=== PATIENT | male | born 1950 | race Caucasian/White ===

== ENCOUNTER 2016-12-01 19:08 | Emergency (ER) | payer MEDICARE, OTHER ==
[2016-12-01 19:22] VITALS: BP 112/73
--- NOTE | 2016-12-01 19:28 | ER Document Report ---
ED Medical Screen (RME) - General Stated Complaint: RIGHT LEG LACERATION Notes: 66 yo male c/o laceration to right lower leg. cut on playground equiptment about an hour [employer]. 4 cm lac to right pretibial area. bleeding controlled. tetnus is UTD TRAVEL OUTSIDE OF THE [place] IN LAST 30 DAYS: No - Related Data Allergies/Adverse Reactions: quinine Allergy (Severe, Verified 03/29/16 15:20) as child Past Medical History - Past Medical History Cardiac Medical History: Denies: Hx Coronary Artery Disease, Hx Heart Attack, Hx Hypertension Pulmonary Medical History: Denies: Hx Asthma, Hx Bronchitis, Hx COPD, Hx Pneumonia Neurological Medical History: Denies: Hx Cerebrovascular Accident, Hx Seizures Renal/ Medical History: Reports: Hx Benign Prostatic Hyperplasia Malignancy Medical History: Reports Hx Skin Cancer Musculoskeltal Medical History: Reports Hx Arthritis - joints Past Surgical History: Reports: Hx Oral Surgery - Immunizations Hx Diphtheria, Pertussis, Tetanus Vaccination: Yes Physical Exam - Vital signs Vitals: Pulse Resp BP Pulse Ox 80 16 112/73 98 12/01/16 19:20 12/01/16 19:20 12/01/16 19:20 12/01/16 19:20 Course - Vital Signs Vital signs: Temp Pulse Resp BP Pulse Ox 97.9 F 80 16 112/73 98 12/01/16 19:21 12/01/16 19:20 12/01/16 19:20 12/01/16 19:20 12/01/16 19:20
[2016-12-01] MEDS ORDERED: LIDOCAINE 1% INJ-PF (10 MG/ML) 30 ML SDV INJ ONE (22:28)
[2016-12-01] MEDS ORDERED: LIDOCAINE 1% INJ-PF (10 MG/ML) 30 ML SDV ONE (22:29)
[2016-12-01] MEDS ORDERED: OXYCODONE-ACETAMINOPHEN 5-325 MG TABLET PO ONE (22:31)
[2016-12-01] MEDS ORDERED: CEPHALEXIN 500 MG CAPSULE PO ONE (22:31)
--- NOTE | 2016-12-01 22:54 | ER Document Report ---
ED Wound - General Chief Complaint: Laceration Stated Complaint: RIGHT LEG LACERATION Notes: Patient is a 66-year-old male presents emergency Department with lactated the right anterior de la fuente. Patient states that he was chasing around his grandson when he ran into a piece of playground equipment. Patient states that he is up- to-date on his tetanus most recently 1 year ago. Has full sensation below the injury no pain around that. Able to bear weight and ambulate without any difficulty TRAVEL OUTSIDE OF THE [place] IN LAST 30 DAYS: No - Related Data Allergies/Adverse Reactions: quinine Allergy (Severe, Verified 03/29/16 15:20) as child Past Medical History - Social History Smoking Status: Never Smoker Chew tobacco use (# tins/day): No Frequency of alcohol use: None Drug Abuse: None Family History: Reviewed & Not Pertinent Patient has suicidal ideation: No Patient has homicidal ideation: No - Past Medical History Cardiac Medical History: Denies: Hx Coronary Artery Disease, Hx Heart Attack, Hx Hypertension Pulmonary Medical History: Denies: Hx Asthma, Hx Bronchitis, Hx COPD, Hx Pneumonia Neurological Medical History: Denies: Hx Cerebrovascular Accident, Hx Seizures Renal/ Medical History: Reports: Hx Benign Prostatic Hyperplasia. Denies: Hx Peritoneal Dialysis Malignancy Medical History: Reports Hx Skin Cancer Musculoskeltal Medical History: Reports Hx Arthritis - joints Past Surgical History: Reports: Hx Oral Surgery - Immunizations Hx Diphtheria, Pertussis, Tetanus Vaccination: Yes Review of Systems - Review of Systems Constitutional: No symptoms reported EENT: No symptoms reported Cardiovascular: No symptoms reported Respiratory: No symptoms reported Gastrointestinal: No symptoms reported Genitourinary: No symptoms reported Male Genitourinary: No symptoms reported Musculoskeletal: See HPI Skin: See HPI Hematologic/Lymphatic: No symptoms reported Neurological/Psychological: No symptoms reported Physical Exam - Vital signs Vitals: Pulse Resp BP Pulse Ox 80 16 112/73 98 12/01/16 19:20 12/01/16 19:20 12/01/16 19:20 12/01/16 19:20 - Notes Notes: PHYSICAL EXAM GENERAL: Alert, interacts well. HEAD: Normocephalic, atraumatic. EYES: Pupils equal, round, and reactive to light. Extraocular movements intact. ENT: Oral mucosa moist, tongue midline. NECK: Full range of motion. Supple. Trachea midline. LUNGS: Clear to auscultation bilaterally, no wheezes, rales, or rhonchi. No respiratory distress. HEART: Regular rate and rhythm. No murmurs, gallops, or rubs. ABDOMEN: Soft, nondistended, nontender. No guarding, rebound, or rigidity.. Bowel sounds present in all 4 quadrants. EXTREMITIES: Moves all 4 extremities spontaneously. No edema, radial and dorsalis pedis pulses 2/4 bilaterally. No cyanosis. NEUROLOGICAL: Alert and oriented x3. Normal speech. PSYCH: Normal affect, normal mood. SKIN: Warm, dry, normal turgor. No rashes or lesions noted. 4 cm linear lack vertical along the anterior de la fuente down to subcutaneous fat not involving bone. Course - Re-evaluation Re-evalutation: 12/01/16 23:05 Lack was irrigated with Betadine and saline and closed with 4-0 Prolene. Patient tolerated the procedure well. Minimal bleeding clean dressing applied can follow-up with primary care doctor in 2-3 weeks for removal. - Vital Signs Vital signs: Temp Pulse Resp BP Pulse Ox 97.9 F 80 16 112/73 98 12/01/16 19:21 12/01/16 19:20 12/01/16 19:20 12/01/16 19:20 12/01/16 19:20 Discharge - Discharge Clinical Impression: Laceration Condition: Good Disposition: HOME, SELF-CARE Instructions: Antibiotic Ointment Protection ([facility]), Oral Narcotic Medication ( [facility]), Soap Cleansing ([facility]), Prophylactic Antibiotic ([facility]), Laceration Care ([facility]) Additional Instructions: Please see your primary care doctor or return to emergency department for suture removal in 14-21 days Prescriptions: Oxycodone HCl/Acetaminophen [Percocet 5-325 mg Tablet] 1 - 2 tab PO Q4HP PRN # 15 tablet PRN Reason: Cephalexin Monohydrate [Keflex 500 mg Capsule] 500 mg PO BID 7 Days Forms: Special Work Note
== END 2016-12-01 23:38 | disposition home or self-care (01) ==
LOC: ER 19:08
PROC: 0HQKXZZ Repair Right Lower Leg Skin, External Approach (ICD-10-PCS; principal; 2016-12-01)
DX: S81.811A Laceration without foreign body, right lower leg, initial encounter (principal); W45.8XXA Other foreign body or object entering through skin, initial encounter
CPT/HCPCS: 99282

== ENCOUNTER 2017-02-08 08:35 | Emergency (ER) | payer MEDICARE, OTHER ==
--- NOTE | 2017-02-08 09:23 | ER Document Report ---
ED General - General Chief Complaint: Shoulder Pain Stated Complaint: LEFT SHOULDER INJURY Time Seen by Provider: 02/08/17 08:51 Mode of Arrival: Ambulatory Information source: Patient Notes: 66-year-old male presents with complaints of left shoulder pain. Patient notes he has a history of right rotator cuff injury charted to grab with his left arm and did not feel an immediate pain but since then has had worsening sensation is unable to lift his arm forward or to the side TRAVEL OUTSIDE OF THE [place] IN LAST 30 DAYS: No - HPI Onset: Other - 2 day duration Onset/Duration: Persistent Quality of pain: Achy Severity: Mild Pain Level: 1 Associated symptoms: Body/muscle aches Exacerbated by: Movement Relieved by: Denies Similar symptoms previously: Yes Recently seen / treated by doctor: Yes - patient goes to [facility] - Related Data Allergies/Adverse Reactions: quinine Allergy (Severe, Verified 03/29/16 15:20) as child Past Medical History - Social History Smoking Status: Never Smoker Cigarette use (# per day): Yes Chew tobacco use (# tins/day): No Smoking Education Provided: No Frequency of alcohol use: None Drug Abuse: None Family History: Reviewed & Not Pertinent Patient has suicidal ideation: No Patient has homicidal ideation: No - Past Medical History Cardiac Medical History: Denies: Hx Coronary Artery Disease, Hx Heart Attack, Hx Hypertension Pulmonary Medical History: Denies: Hx Asthma, Hx Bronchitis, Hx COPD, Hx Pneumonia Neurological Medical History: Denies: Hx Cerebrovascular Accident, Hx Seizures Renal/ Medical History: Reports: Hx Benign Prostatic Hyperplasia. Denies: Hx Peritoneal Dialysis Malignancy Medical History: Reports Hx Skin Cancer Musculoskeltal Medical History: Reports Hx Arthritis - joints Past Surgical History: Reports: Hx Oral Surgery - Immunizations Hx Diphtheria, Pertussis, Tetanus Vaccination: Yes Review of Systems - Review of Systems Notes: PHYSICAL EXAMINATION: GENERAL: Well-appearing, well-nourished and in no acute distress. HEAD: Atraumatic, normocephalic. EYES: Pupils equal round and reactive to light, extraocular movements intact, sclera anicteric, conjunctiva are normal. ENT: Nares patent, oropharynx clear without exudates. Moist mucous membranes. NECK: Normal range of motion, supple without lymphadenopathy LUNGS: Breath sounds clear to auscultation bilaterally and equal. No wheezes rales or rhonchi. HEART: Regular rate and rhythm without murmurs ABDOMEN: Soft, nontender, nondistended abdomen. No guarding, no rebound. No masses appreciated. Musculoskeletal: Limited range of motion of the left shoulder secondary to pain , patient is able to move the shoulder if he uses his right arm. Range of motion is limited to 80 NEUROLOGICAL: Cranial nerves grossly intact. Normal speech, normal gait. Normal sensory, motor exams PSYCH: Normal mood, normal affect. SKIN: Warm, Dry, normal turgor, no rashes or lesions noted. Physical Exam - Vital signs Vitals: Temp Pulse Resp BP Pulse Ox 97.4 F 73 16 123/77 99 02/08/17 08:40 02/08/17 08:40 02/08/17 08:40 02/08/17 08:40 02/08/17 08:40 Course - Re-evaluation Re-evalutation: 02/08/17 09:23 Patient instructed on risks and benefits of medications prescribed. Denies any concerns regarding such. 02/08/17 12:14 X-ray noted no significant abnormality, I believe there is a rotator cuff injury , patient will be started on anti-inflammatory steroids and risks have been explained. Patient has been ordered a sling for comfort and follow-up with orthopedics for possible rotator cuff repair After performing a Medical Screening Examination, I estimate there is LOW risk for INTRACRANIAL HEMORRHAGE, UNSTABLE SPINE FRACTURE, CENTRAL CORD SYNDROME, CAUDA EQUINA, THORACIC AORTIC DISSECTION, PNEUMOTHORAX, PERFORATED BOWEL, RUPTURED ABDOMINAL AORTIC ANEURYSM, ACUTE TENDON RUPTURE, COMPARTMENT SYNDROME, or OPEN FRACTURE, thus I consider the discharge disposition reasonable. Also, there is no evidence or peritonitis, sepsis, or toxicity. I have reevaluated this patient multiple times and no significant life threatening changes are noted. The patient and I have discussed the diagnosis and risks, and we agree with discharging home to follow-up with their primary doctor with the understanding that symptoms and presentations can change. We also discussed returning to the Emergency Department immediately if new or worsening symptoms occur. We have discussed the symptoms which are most concerning (e.g., bloody stool, fever, changing or worsening pain, vomiting) that necessitate immediate return. - Vital Signs Vital signs: Temp Pulse Resp BP Pulse Ox 97.4 F 70 16 120/70 100 02/08/17 09:39 02/08/17 09:39 02/08/17 09:39 02/08/17 09:39 02/08/17 09:39 - Diagnostic Test Radiology reviewed: Image reviewed, Reports reviewed - No acute abnormality Discharge - Discharge Clinical Impression: Rotator cuff (capsule) sprain Qualifiers: Encounter type: initial encounter Laterality: left Qualified Code(s): S43.422A - Sprain of left rotator cuff capsule, initial encounter Shoulder pain Qualifiers: Laterality: left Chronicity: acute Qualified Code(s): M25.512 - Pain in left shoulder Condition: Stable Disposition: HOME, SELF-CARE Instructions: Rotator Cuff Injury ([facility]) Prescriptions: Oxycodone HCl/Acetaminophen [Percocet 5-325 mg Tablet] 1 - 2 tab PO Q4H PRN #15 tablet PRN Reason: Prednisone [Deltasone 20 mg Tablet] 3 tab PO DAILY 5 Days Referrals: JEREMY QUIROZ DO [ACTIVE STAFF] - Follow up tomorrow
[2017-02-08 09:41] VITALS: BP 120/70
== END 2017-02-08 09:41 | disposition home or self-care (01) ==
LOC: ER 08:35
DX: S43.422A Sprain of left rotator cuff capsule, initial encounter (principal); M25.512 Pain in left shoulder; M79.1 Myalgia; X58.XXXA Exposure to other specified factors, initial encounter; Z85.828 Personal history of other malignant neoplasm of skin
CPT/HCPCS: 99283

== ENCOUNTER 2017-04-08 10:54 | Observation (INO) | payer MEDICARE, OTHER ==
[2017-04-01 09:26] LABS: APPEARANCE,URINE CLEAR; BILIRUBIN,URINE NEGATIVE (NEGATIVE); GLUCOSE, URINE NEGATIVE (NEGATIVE); KETONES,URINE NEGATIVE (NEGATIVE); LEUKOCYTE ESTERASE,URINE NEGATIVE (NEGATIVE); NITRITE,URINE NEGATIVE (NEGATIVE); PROTEIN,URINE NEGATIVE (NEGATIVE); URINE SPECIFIC GRAVITY 1.004; UROBILINOGEN,URINE NEGATIVE mg/dL (<2.0)
[2017-04-01 09:27] LABS: ABSOLUTE EOSINOPHILS # (AUTO) 0.2 10^3/uL (0.0-0.6); ABSOLUTE LYMPHOCYTES (AUTO) 1.7 10^3/uL (0.5-4.7); ABSOLUTE MONOCYTES (AUTO) 0.6 10^3/uL (0.1-1.4); BASOPHILS % (AUTO) 0.6 % (0-2); EOSINOPHILS % (AUTO) 3.7 % (0-6); HEMATOCRIT 43.8 % (37.9-51.0); HEMOGLOBIN 14.7 g/dL (13.5-17.0); HGB HCT DIFFERENCE 0.3; LYMPHOCYTES % (AUTO) 29.8 % (13-45); MEAN CORPUSCULAR HEMOGLOBIN 29.8 pg (27.0-33.4); MEAN CORPUSCULAR HGB CONC 33.6 g/dL (32.0-36.0); MEAN CORPUSCULAR VOLUME 89 fl (80-97); RED BLOOD COUNT 4.95 10^6/uL (4.35-5.55); RED CELL DISTRIBUTION WIDTH 13.7 % (11.5-14.0); SEGMENTED NEUTROPHILS % (AUTO) 54.9 % (42-78); WHITE BLOOD COUNT 5.6 10^3/uL (4.0-10.5)
[2017-04-01 10:00] LABS: BLOOD UREA NITROGEN 16 mg/dL (7-20); CALCIUM 9.4 mg/dL (8.4-10.2); CARBON DIOXIDE 29 mmol/L (22-30); CHLORIDE 105 mmol/L (98-107); CREATININE RESULT 1.11 mg/dL (0.52-1.25); GLUCOSE 92 mg/dL (75-110); SODIUM 143.1 mmol/L (137-145)
[2017-04-01 10:01] LABS: ANION GAP 9 (5-19)
--- NOTE | 2017-04-01 10:51 | RADIOLOGY REPORT (SQ) ---
EXAM DESCRIPTION: CHEST PA/LATERAL COMPLETED DATE/TIME: 04/01/2017 10:32 am REASON FOR STUDY: PRE OP COMPARISON: None. EXAM PARAMETERS: NUMBER OF VIEWS: two views TECHNIQUE: Digital Frontal and Lateral radiographic views of the chest acquired. RADIATION DOSE: NA LIMITATIONS: none FINDINGS: LUNGS AND PLEURA: There is calcified granuloma in the right lung calcified right hilar nod es are present. There is no pulmonary infiltrate or pleural effusion. MEDIASTINUM AND HILAR STRUCTURES: No masses or contour abnormalities. HEART AND VASCULAR STRUCTURES: Heart normal size. No evidence for failure. BONES: No acute findings. HARDWARE: None in the chest. OTHER: No other significant finding. IMPRESSION: NO SIGNIFICANT RADIOGRAPHIC FINDING IN THE CHEST. TECHNICAL DOCUMENTATION: JOB ID: [id number] [employer]- All Rights Reserved
--- NOTE | 2017-04-01 20:53 | EKG REPORT ---
SEVERITY:- NORMAL ECG - SINUS RHYTHM : Confirmed by: Virginie Chowdhury 01-Apr-2017 20:52:04
[~2017-04-08 10:54] MED LIST: CEFAZOLIN 2 GM/D5W RTU 2 GM/50 ML RTUPB IV PRN; LACTATED RINGERS 1000 ML IV PRN
[2017-04-08] MEDS ORDERED: BUPIVACAINE HCL 0.5 % INJ/PF 30 ML SDV ONE (11:55)
[2017-04-08] MEDS ORDERED: EPINEPHRINE INJ/PF 1 MG/1 ML AMPULE ONE (11:56)
[2017-04-08] MEDS ORDERED: FENTANYL CITRATE INJ/PF 250 MCG/5 ML AMPULE ONE (12:01)
[2017-04-08] MEDS ORDERED: MIDAZOLAM 2 MG/2 ML INJ ONE (12:02)
[2017-04-08] MEDS ORDERED: IBUPROFEN INJ 800 MG/8 ML VIAL IV ONE (12:02)
[2017-04-08] MEDS ORDERED: PROPOFOL INJ 200 MG/20 ML VIAL IV ONE (12:02)
[2017-04-08] MEDS ORDERED: MORPHINE SULFATE 10 MG/ML INJ ONE (12:03)
[2017-04-08] MEDS ORDERED: EPHEDRINE SULFATE INJ 50 MG/1 ML AMPULE ONE (13:25)
[2017-04-08] MEDS ORDERED: GLYCOPYRROLATE INJ 0.4 MG/2 ML VIAL ONE (13:33)
[2017-04-08] MEDS ORDERED: ONDANSETRON HCL INJ/PF 4 MG/2 ML SDV ONE ×3 (13:33→19:48)
[2017-04-08] MEDS ORDERED: SUCCINYLCHOLINE CHLORIDE INJ 200 MG/10 ML VIAL ONE (13:33)
[2017-04-08] MEDS ORDERED: NEOSTIGMINE METHYLSULFATE 10 MG/10 ML VIAL ONE (13:33)
[2017-04-08] MEDS ORDERED: PHENYLEPHRINE HCL INJ/PF 10 MG/1 ML SDV ONE (13:33)
[2017-04-08] MEDS ORDERED: METOCLOPRAMIDE HCL INJ/PF 10 MG/2 ML SDV ONE (13:33)
[2017-04-08] MEDS ORDERED: LIDOCAINE 2% INJ-PF (20 MG/ML) 10 ML AMPUL ONE (13:33)
[2017-04-08] MEDS ORDERED: ROCURONIUM BROMIDE INJ 50 MG/5 ML VIAL IV ONE (13:33)
[2017-04-08] MEDS ORDERED: DIPHENHYDRAMINE HCL 50 MG/ML VIAL IV PRN (14:31)
[2017-04-08] MEDS ORDERED: PROMETHAZINE HCL INJ 25 MG/1 ML VIAL IV PRN ×2 (14:31)
[2017-04-08] MEDS ORDERED: FENTANYL CITRATE INJ/PF 100 MCG/2 ML AMPUL IV PRN ×3 (14:31)
[2017-04-08] MEDS ORDERED: ONDANSETRON HCL INJ/PF 4 MG/2 ML SDV IV PRN (14:31)
[2017-04-08] MEDS ORDERED: MORPHINE SULFATE 10 MG/ML INJ IV PRN ×2 (14:31→23:02)
[2017-04-08] MEDS ORDERED: OXYCODONE-ACETAMINOPHEN 5-325 MG TABLET PO PRN ×3 (14:31→16:54)
[2017-04-08] MEDS ORDERED: MEPERIDINE HCL/PF INJ 25 MG/1 ML DISP.SYRIN IV PRN (14:31)
--- NOTE | 2017-04-08 16:32 | PDOC DISCHARGE SUMMARY ---
Discharge Summary (SDC) - Discharge Final Diagnosis: Status post left shoulder arthroscopic rotator cuff repair and biceps tenodesis Date of Surgery: 04/08/17 Discharge Date: 04/08/17 Condition: Good Treatment or Instructions: Patient is instructed to follow up in 10-14 days. Patient instructed to remove dressing in 4 days then can shower and apply Band- Aids as needed. Patient to wear sling for comfort but okay to remove for shower and pendulum exercises. Pendulum exercises are instructed to be done 3 times a day ideally with breakfast, lunch, dinners and showers. Patient instructed to call if there is any signs of redness or drainage fevers or chills. Prescriptions: Oxycodone HCl/Acetaminophen [Percocet 5-325 mg Tablet] 1 - 2 tab PO ASDIR PRN # 60 tablet PRN Reason:
[2017-04-08] MEDS ORDERED: NALOXONE HCL INJ/PF 0.4 MG/1 ML SDV ONE (16:50)
--- NOTE | 2017-04-08 16:54 | Operative Report ---
Operative Report DATE OF SURGERY: 04/08/17 PREOPERATIVE DIAGNOSIS: Left shoulder full-thickness large rotator cuff tear POSTOPERATIVE DIAGNOSIS: Same plus partial tearing of the long head of the biceps tendon OPERATION: Left shoulder arthroscopic rotator cuff repair and biceps tenodesis SURGEON: FILIBERTO HINKLE ANESTHESIA: GA TISSUE REMOVED OR ALTERED: None COMPLICATIONS: None ESTIMATED BLOOD LOSS: 15 mL INTRAOPERATIVE FINDINGS: As above PROCEDURE: IMPLANTS: 5.5 bio composite corkscrews 2 and 4.75 bio composite swivel locks DESCRIPTION OF PROCEDURE: Patient was brought to the operating room placed in supine position. After successfully induced and intubated the patient patient was placed in the beachchair position the head and endotracheal tube was secured appropriately. The left shoulder shoulder was prepped and draped in a normal surgical fashion. A timeout was done identifying the left shoulder shoulder as the correct site. After inflating the glenohumeral joint with sterile saline solution an 11 blade was used to establish the posterior portal. The arthroscope was introduced and return of fluid was seen showing that we successfully penetrated the glenohumeral joint. With the use of spinal needle we're able to lilly the anterior portal and using an 11 blade able to establish anterior portal. A cannula was introduced through the anterior portal. At this point diagnostic scope was done. At first glance patient had a type II SLAP tear and was probed showing the detachment. Also when I turned my attention to the rotator cuff was evidence of showing the full-thickness rotator cuff tear. The articulation was intact. No loose bodies. A lateral portal was established 11 blade. Passport cannula was introduced to secure the lateral portal. 4.0mm shaver was introduced and was used to debride edges of the tear as well as bur the bone for preparation of anchor placement. Once I was satisfied with the preparation I then redirected my scope into the subacromial space. Small bursectomy was done using radiofrequency ablator and shaver. The tear was a large tear but using the rotator cuff grasper I was able to show that the cuff tear was mobile and was able to be brought back to the articular margin therefore felt repair with 2 anchors was acceptable. A percutaneous incision was then just adjacent to the acromion on the lateral aspect. Through this percutaneous hole the awl was used to prepare the hole for an anchor. [place] was percutaneously sent flushed with the bone just adjacent to the articular margin.Same steps were taken for placement of our second anchor more posteriorly. Sutures were passed through the anterior portal for proper suture management. With the use of the scorpion and I proceeded to pass the sutures through the rotator cuff tendon with proper suture management was able to pass the strands either through percutaneous hole or the anterior portal. Once I was satisfied with placement of all my sutures I then proceeded to do my arthroscopic knots. At this point the strands were used to do our lateral row. 2 bicomposite swivel lock were used for the lateral row fixation. Lateral aspect of the humerus was then cleaned off with a shaver and electrocautery. Once identified placementof the swivel lock, I proceeded to use my awl to do my hole. This this point the sutures were adequately tensioned and secured. Swivel lock was inserted and screwed in, securing and increasing the footprint of the rotator cuff repair. Remaining strands were cut with the arthroscopic cutter. The tenotomized biceps was identified in the subacromial space and secured with a FiberWire suture using a fast pass scorpion instrument. This remaining strands of the FiberWire that was passed through the long head of biceps was then incorporated and passed through the rotator cuff repair. Arthroscopic knots were done securing the biceps to the repair. The biceps was tenotomized to soft tissue and secured. Remaining strands of FiberWire was cut with arthroscopic cutter leaving a small tail. Final pictures were taking showing my repair. At this point fluid from the shoulder was removed camera and instruments were all removed. I proceeded to close my portal sites with 3-0 nylon. Xeroform 4 x 4 dressing followed by ABDs pads and Medipore tape was applied. Patient was placed in a sling and returned to supine position where he was successfully extubated and taken to PACU in stable condition.
[2017-04-08] MEDS ORDERED: ACETAMINOPHEN 100 ML IV ONE (17:59)
[2017-04-08] MEDS: FENTANYL CITRATE INJ/PF 100 MCG/2 ML AMPUL ONE ×2 (18:35→18:40)
[2017-04-08] MEDS: ONDANSETRON HCL INJ/PF 4 MG/2 ML SDV IV PRN (19:46)
[2017-04-09] MEDS: ONDANSETRON HCL INJ/PF 4 MG/2 ML SDV IV PRN (00:55)
[2017-04-09] MEDS: OXYCODONE-ACETAMINOPHEN 5-325 MG TABLET PO PRN ×2 (03:53→07:45)
[2017-04-09] MEDS ORDERED: ONDANSETRON HCL INJ/PF 4 MG/2 ML SDV IV PRN (08:15)
[2017-04-09 09:00] VITALS: BP 120/58
== END 2017-04-09 09:22 | disposition home or self-care (01) ==
LOC: OROUT 10:54 → EDSTATUS 13:00 → 2N 19:05 → OROUT 20:05 → 2N 04-09 09:22 → OROUT 04-09 09:22
PROVIDERS: ADMIT Orthopaedic Surgery; ATTEND Orthopaedic Surgery
PROC: 0LS24ZZ Reposition Left Shoulder Tendon, Percutaneous Endoscopic Approach (ICD-10-PCS; 2017-04-08)
PROC: 0LQ24ZZ Repair Left Shoulder Tendon, Percutaneous Endoscopic Approach (ICD-10-PCS; principal; 2017-04-08 13:00)
DX: M75.122 Complete rotator cuff tear or rupture of left shoulder, not specified as traumatic (principal); S46.112A Strain of muscle, fascia and tendon of long head of biceps, left arm, initial encounter; X58.XXXA Exposure to other specified factors, initial encounter; Z85.828 Personal history of other malignant neoplasm of skin; Z98.890 Other specified postprocedural states
CPT/HCPCS: 29827; 29828; 93005; 36415; 82962; 85025; 80048; 81001; 71020; 93010; C1713; J2250; J3490 ×3; J0171; J3010 ×2; J2765; J2270; J2310; A9270; J2370; J0330; J2405 ×2; J2704; J0690; J0131; J1741; 1630; G0378; G0379